=== PATIENT | male | born 1965 | race Caucasian/White ===

== ENCOUNTER → 2017-10-18 | Outpatient (CLI) | payer OTHER ==
--- NOTE | 2017-10-19 19:02 | MR ---
EXAMINATION TYPE: MR knee LT wo con DATE OF EXAM: 10/18/2017 COMPARISON: NONE HISTORY: Left knee pain. Concern for collateral ligament sprain TECHNIQUE: Multiplanar, multisequence imaging of the left knee is performed without IV contrast. FINDINGS: MEDIAL MENISCUS: There is a longitudinal tear of the medial meniscal body extending into the posterio r horn with small radial component of the free edge of the posterior horn of the medial meniscus. Pos terior root appears intact. There is associated 3 mm meniscal extrusion. LATERAL MENISCUS: Anterior and posterior horns are intact without tear. CRUCIATE LIGAMENTS: The anterior and posterior cruciate ligaments are intact. However there is high s ignal both deep and superficial to the medial collateral ligament suggestive of low-grade sprain and overlying bursitis. No discontinuity of the medial collateral ligament. COLLATERAL LIGAMENTS: The medial collateral ligament and lateral collateral ligament complex are inta ct and unremarkable. EXTENSOR MECHANISM: Visualized quadriceps and patellar tendons are intact. There is minimal thickenin g of the insertional fibers of the quadriceps tendon with increased signal on PD sagittal fat-sat garland ge 14. EFFUSION: Small suprapatellar joint effusion. POPLITEAL CYST: Small amount of fluid between the medial head of the gastrocnemius and semimembranos us without bhavna form cyst. CARTILAGE: There is a small partial-thickness defect of the anterior weightbearing surface of the lat eral femoral condyle measuring 1.1 x 0.8 cm. There is also a partial thickness cartilaginous defect o f the weightbearing surface of the medial femoral condyle measuring 1.2 x 0.9 cm which is near comple te full-thickness. BONE MARROW SIGNAL: No focal abnormal marrow signal is appreciated. OTHER: Nonspecific infrapatellar and prepatellar subcutaneous edema is seen.. IMPRESSION: 1. Predominant longitudinal tear within the medial meniscal body extending into the posterior horn of the medial meniscus although the root is intact. There is an additional radial tear of the free edge of the posterior horn of the radial meniscus and associated meniscal extrusion. 2. Findings compatible with low-grade MCL sprain and MCL bursitis. 3. 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 4. Minimal thickening of the insertional fibers of the quadriceps tendon suggestive of low-grade inju ry.
== END | disposition home or self-care (01) ==
LOC: RADMRIMAIN 11:31
PROVIDERS: ATTEND Preventive Medicine Occupational Medicine
DX: S83.242A Other tear of medial meniscus, current injury, left knee, initial encounter (principal); S83.412A Sprain of medial collateral ligament of left knee, initial encounter; M70.52 Other bursitis of knee, left knee; M94.262 Chondromalacia, left knee; M67.864 Other specified disorders of tendon, left knee

== ENCOUNTER 2018-01-14 10:02 | Day surgery (SDC) | payer BC ==
[2018-01-12 09:29] VITALS: BMI 36.0
--- NOTE | 2018-01-14 08:11 | P.GSHP ---
History of Present Illness H&P Date: 01/14/18 CHIEF COMPLAINT: Colon screen HISTORY OF PRESENT ILLNESS: The patient is a 52-year-old male who presents for colon screen. Lower endoscopy was offered for further evaluation and management. PAST MEDICAL HISTORY: Please see list. PAST SURGICAL HISTORY: Please see list. MEDICATIONS: Please see list. ALLERGIES: Please see list. SOCIAL HISTORY: No illicit drug use FAMILY HISTORY: No reports of Crohn disease or ulcerative colitis. REVIEW OF ORGAN SYSTEMS: CONSTITUTIONAL: No reports of fevers or chills. PHYSICAL EXAM: VITAL SIGNS: Stable GENERAL: Well-developed pleasant in no acute distress. HEENT: No scleral icterus. Extraocular movements grossly intact. Moist buccal mucosa. NECK: Supple without lymphadenopathy. CHEST: Unlabored respirations. Equal bilateral excursions. CARDIOVASCULAR: Regular rate and rhythm. Distal 2+ pulses. ABDOMEN: Soft, nontender, nondistended. MUSCULOSKELETAL: No clubbing, cyanosis, or edema. ASSESSMENT: 1. Colon screen. PLAN: 1. Recommend proceeding with a lower endoscopy Past Medical History Past Medical History: No Reported History History of Any Multi-Drug Resistant Organisms: MRSA Date of last positivie culture/infection: 2009 MDRO Source:: head Past Surgical History: Orthopedic Surgery Additional Past Surgical History / Comment(s): Torn meniscus repair Past Anesthesia/Blood Transfusion Reactions: No Reported Reaction Smoking Status: Never smoker - Past Family History Mother Family Medical History: No Reported History Medications and Allergies Home Medications Medication Instructions Recorded Confirmed Type No Known Home Medications [No 01/12/18 01/12/18 History Known Home Medications] Allergies Allergy/AdvReac Type Severity Reaction Status Date / Time No Known Allergies Allergy Verified 01/12/18 09:24
[~2018-01-14 10:02] MED LIST: LACTATED RINGERS 1,000 ML IV SCH; LIDOCAINE 1% 20 ML VIAL (10MG/ML) FOR IV START INTRADERMA PRN
[2018-01-14] MEDS ORDERED: LACTATED RINGERS 1,000 ML IV ONE (11:02)
[2018-01-14 11:06] VITALS: RESP 18; TEMP 97.5
[2018-01-14] MEDS ORDERED: PROPOFOL 10 MG/ML 20 ML VIAL IV ONE (11:58)
--- NOTE | 2018-01-14 12:16 | P.PCN ---
Date of Procedure: 01/14/18 Description of Procedure: PREOPERATIVE DIAGNOSIS: Colonoscopy screening. POSTOPERATIVE DIAGNOSIS: Colonoscopy screening. Colorectal polyp, sigmoid colon Internal hemorrhoids. External hemorrhoids. OPERATION: Colonoscopy to the ileocecal valve and appendiceal orifice. Colonoscopy with cold biopsy forceps sigmoid colon SURGEON: Christina Montemayor MD. ANESTHESIA: MAC. INDICATIONS: The patient is a 52-year-old male who presents for his first colonoscopy screening. Benefits and risks were described and informed consent was obtained. DESCRIPTION OF PROCEDURE: The patient had undergone Gatorade, MiraLAX and Dulcolax prep. He had been brought into the operating room and laid in the left lateral decubitus position. After adequate intravenous sedation, the rectum was examined with 2% lidocaine jelly. The prostate was smooth and without abnormality. No external hemorrhoids were encountered. The rectal tone was within normal limits. No lesions were palpated in the rectal vault. An Olympus colonoscope was advanced until the ileocecal valve and appendiceal orifice were clearly viewed. The prep was excellent with clear visualization of the mucosal folds. The scope was removed with visualization of each mucosal fold. No scattered diverticulosis was encountered. A 3 mm tubular adenoma was cold forceps biopsy at 25 cm from the anal verge of the sigmoid colon. No evidence of focal colitis was found. Retroflexion of the scope demonstrated grade 1 internal hemorrhoids without active bleeding or inflammation. The colon was desufflated. The patient had tolerated the procedure well. Withdrawal time was over 6 minutes. FINDINGS: Internal hemorrhoids, grade 1 External prolapsed hemorrhoids, grade 2 No arteriovenous malformations. No sigmoid diverticulosis A 3 mm tubular adenoma was cold forceps biopsy at 25 cm from the anal verge of the sigmoid colon. No focal colitis. RECOMMENDATIONS: Repeat colonoscopy 5 years, 2022. Plan - Discharge Summary New Discharge Prescriptions: No Action No Known Home Medications [No Known Home Medications] Discharge Medication List No Known Home Medications [No Known Home Medications] 01/12/18 [History]
[2018-01-14 12:39] VITALS: BP 110/74; PULSE 55
== END 2018-01-14 12:55 | disposition home or self-care (01) ==
LOC: ORWHC2ENDO 10:02
PROVIDERS: ATTEND Surgery Plastic and Reconstructive Surgery
DX: Z12.11 Encounter for screening for malignant neoplasm of colon (principal); K63.5 Polyp of colon; K64.0 First degree hemorrhoids; K64.4 Residual hemorrhoidal skin tags; E66.9 Obesity, unspecified; Z86.14 Personal history of Methicillin resistant Staphylococcus aureus infection; Z68.36 Body mass index [BMI] 36.0-36.9, adult
CPT/HCPCS: 88305; 45380; J2704

== ENCOUNTER 2021-01-20 10:49 | Emergency (ER) | payer BC ==
[2021-01-20 10:56] VITALS: BP 99/65; PULSE 84; RESP 18; TEMP 97.8
[2021-01-20] MEDS ORDERED: LIDOCAINE 1% INJ 10MG/ML (20 ML MDV) SQ ONE (11:07)
[2021-01-20] MEDS ORDERED: DIPH,PERTUS(ACELL)TETVAC-LF 0.5 ML VIAL IM ONE (11:07)
--- NOTE | 2021-01-20 11:39 | ED ---
Wound/Laceration HPI - General Chief Complaint: Wound/Laceration Stated Complaint: L hand laceration Time Seen by Provider: 01/20/21 10:56 Source: patient Mode of arrival: ambulatory Limitations: no limitations - History of Present Illness Initial Comments: 55-year-old male presents emergency Department with a chief complaint of a laceration. This occurred about one hour prior to arrival after he was sharpening a lawnmower blade. Patient reports the laceration is located on his left hand near the second and third digit. He reports some bleeding which is since resolved. Denies blood thinners. Tetanus is up-to-date. Reports minimal pain. Reports range of motion. Denies any paresthesias. - Related Data Home Medications Medication Instructions Recorded Confirmed No Known Home Medications 01/12/18 01/12/18 Allergies Allergy/AdvReac Type Severity Reaction Status Date / Time No Known Allergies Allergy Verified 01/20/21 10:53 Review of Systems ROS Statement: Those systems with pertinent positive or pertinent negative responses have been documented in the HPI. ROS Other: All systems not noted in ROS Statement are negative. Past Medical History Past Medical History: No Reported History History of Any Multi-Drug Resistant Organisms: MRSA Date of last positivie culture/infection: 2009 MDRO Source:: head Past Surgical History: Orthopedic Surgery Additional Past Surgical History / Comment(s): Torn meniscus repair Past Anesthesia/Blood Transfusion Reactions: No Reported Reaction Past Psychological History: No Psychological Hx Reported Smoking Status: Never smoker Past Alcohol Use History: Occasional Past Drug Use History: None Reported - Past Family History Mother Family Medical History: No Reported History General Exam Limitations: no limitations General appearance: alert, in no apparent distress Head exam: Present: atraumatic, normocephalic, normal inspection Eye exam: Present: normal appearance, PERRL, EOMI Pupils: Present: normal accommodation ENT exam: Present: normal exam, normal oropharynx, mucous membranes moist Neck exam: Present: normal inspection, full ROM. Absent: tenderness Respiratory exam: Present: normal lung sounds bilaterally. Absent: respiratory distress Cardiovascular Exam: Present: regular rate, normal rhythm, normal heart sounds Extremities exam: Present: full ROM, tenderness (Tetanus at laceration site), normal capillary refill, other (Palpable ulnar and radial pulses bilaterally). Absent: normal inspection (2 similar laceration on the dorsal aspect of her right hand.), pedal edema, joint swelling, calf tenderness Back exam: Present: normal inspection, full ROM. Absent: tenderness Neurological exam: Present: alert, oriented X3 Psychiatric exam: Present: normal affect, normal mood Skin exam: Present: warm, dry, intact, normal color Course Vital Signs 01/20/21 10:53 Temperature 97.8 F Pulse Rate 84 Respiratory 18 Rate Blood Pressure 99/65 O2 Sat by Pulse 98 Oximetry Procedures - Laceration Laceration #1 Consent Obtained: verbal consent Indication: laceration Site: hand (Right hand) Size (cm): 3 Description: linear, clean Depth: simple, single layer Sedation/Analgesia: none Anesthetic Used: lidocaine 1% Anesthesia Technique: local infiltration Amount (mls): 3 Pre-repair: irrigated extensively, deep structures intact Type of Sutures: nylon Size of Sutures: 4-0 Number of Sutures: 5 Technique: simple, interrupted Patient Tolerated Procedure: well, no complications Medical Decision Making - Medical Decision Making 55-year-old male presents to emergency department with a chief complaint of laceration. Physical examination reveals a superficial laceration that was sterilely irrigated with saline and Betadine. Laceration site was repaired with 5 sutures. Patient started procedure well. His tetanus is already up-to-date. He has full range of motion in all his fingers with sensation intact. Neurovascularly intact. He was advised to return for suture removal. Case discussed with Dr. Kauffman. Disposition Clinical Impression: Laceration Disposition: HOME SELF-CARE Condition: Stable Instructions (If sedation given, give patient instructions): Care For Your Stitches (DC), Laceration (DC) Additional Instructions: Please return to the emergency room in 8-10 days to have sutures removed. Please watch for any signs of infection which may include increased pain, swelling, redness, fever or chills. Please return to emergency room for any signs of infection do occur. Please use clean soap and water over the area to prevent scabbing over your stitches. Please leave wound covered for the first 24-48 hours and then leave wound open to air. Please return to the emergency room for any other concerns. Is patient prescribed a controlled substance at d/c from ED?: No Referrals: Sarabjit Grant MD [Primary Care Provider] - 1-2 days Time of Disposition: 11:39
== END 2021-01-20 11:52 | disposition home or self-care (01) ==
LOC: EC 10:49
DX: S61.411A Laceration without foreign body of right hand, initial encounter (principal); W26.8XXA Contact with other sharp object(s), not elsewhere classified, initial encounter
CPT/HCPCS: 90715; 99282; 90471; 12002; J2001